=== PATIENT | male | born 1975 ===

== ENCOUNTER 2017-08-20 08:18 | Emergency (ER) | payer OTHER ==
[2017-08-20 08:36] VITALS: BP 153/101
--- NOTE | 2017-08-20 09:52 | UC ---
Skin Complaint HPI - HPI Summary HPI Summary: 42 yo male presents with burn to his right hand. He tells me that last night he was cooking in the oven with a metal waggoner, his phone rang and distracted him and he reached to grab the hot waggoner with his bare hand. Had immediate pain. Ran his hand under cool water for about 30-45minutes. Here today to get it "checked out ". Pain is well controlled. Denies fever, chills. - History of Current Complaint Chief Complaint: UCBurn Time Seen by Provider: 08/20/17 09:52 Stated Complaint: HAND BURN Hx Obtained From: Patient Onset/Duration: Sudden Onset Skin Exposure Onset/Duration: Hours Ago Timing: Constant Onset Severity: Severe Current Severity: Mild Pain Intensity: 2 Pain Scale Used: 0-10 Numeric - Allergy/Home Medications Allergies/Adverse Reactions: Allergies Allergy/AdvReac Type Severity Reaction Status Date / Time No Known Allergies Allergy Verified 08/20/17 08:35 Home Medications: Home Medications Amlodipine Besylate [Norvasc] 1 tab PO DAILY 08/20/17 [History Confirmed ] Etanercept [Enbrel] 1 dose IM WEEKLY 08/20/17 [History Confirmed 08/20/17] FLUoxetine CAP* [Prozac CAP*] 1 tab PO DAILY 08/20/17 [History Confirmed ] Review of Systems Constitutional: Negative Skin: Other - Burn palmar aspect right hand Eyes: Negative ENT: Negative Respiratory: Negative Cardiovascular: Negative Gastrointestinal: Negative Neurovascular: Negative Neurological: Negative Psychological: Negative All Other Systems Reviewed And Are Negative: Yes PMH/Surg Hx/FS Hx/Imm Hx Previously Healthy: Yes Cardiovascular History: Hypertension Psychological History: Anxiety - Surgical History Surgical History: None - Family History Known Family History: Positive: None - Social History Occupation: Unemployed Lives: With Family Alcohol Use: None Substance Use Type: None Smoking Status (MU): Never Smoked Tobacco - Immunization History Most Recent Tetanus Shot: UTD Physical Exam - Summary Physical Exam Summary: GENERAL: NAD. WDWN. No pain distress. SKIN: Right palmar aspect of hand: 2.5cm blister with mildly erythematous base on thenar region. 2.0cm blister along index, middle, and ring finger MCP pads. Two blisters on each middle and index fingers. No streaking, bleeding, or drainage. NECK: Supple. Nontender. No lymphadenopathy. CHEST: No accessory muscle use. Breathing comfortably and in no distress. CV: RRR. Without m/r/g. MSK: Right hand: FROM. NEURO: Alert. CN II-XII grossly intact. PSYCH: Age appropriate behavior. Triage Information Reviewed: Yes Vital Signs: Initial Vital Signs Temp 97.6 F 08/20/17 08:32 Pulse 90 08/20/17 08:32 Resp 22 08/20/17 08:32 BP 153/101 08/20/17 08:32 Pulse Ox 98 08/20/17 08:32 Course/Dx - Course Course Of Treatment: Second degree burn to right hand. Apply aloe and keep the blisters intact and do not pop them. Keep hand covered when working. f/u prn - Diagnoses Provider Diagnoses: Second degree burn right hand Discharge - Sign-Out/Discharge Documenting (check all that apply): Discharge/Admit/Transfer - Discharge Plan Condition: Stable Disposition: HOME Patient Education Materials: Second Degree Burn (ED) Referrals: Manoj Siddiqui NP [Primary Care Provider] - Additional Instructions: If you develop a fever, shortness of breath, chest pain, new or worsening symptoms - please call your PCP or go to the ED. Your blood pressure was high at todays visit. Please see your primary provider within 4 weeks for recheck and re-evaluation. 1) Apply aloe to your hand and cover any open sores - Billing Disposition and Condition Condition: STABLE Disposition: Home
== END 2017-08-20 10:07 | disposition home or self-care (01) ==
LOC: UCEAST 08:18
DX: T23.251A Burn of second degree of right palm, initial encounter (principal); T23.231A Burn of second degree of multiple right fingers (nail), not including thumb, initial encounter; X15.3XXA Contact with hot saucepan or skillet, initial encounter; Y93.G3 Activity, cooking and baking; Y92.000 Kitchen of unspecified non-institutional (private) residence as the place of occurrence of the external cause; I10 Essential (primary) hypertension; F41.9 Anxiety disorder, unspecified
CPT/HCPCS: 99211; G0463

== ENCOUNTER 2017-09-10 06:39 | Inpatient (IN) | payer OTHER ==
[~2017-09-10 06:39] MED LIST: Buffered Lidocaine 0.9% SYRIN* 5 ML/SYR SYRINGE INTRADERM ONE; CEFAZOLIN IVPB SCH; NS 0.9% IVPB SCH
[2017-09-10] MEDS ORDERED: Buffered Lidocaine 0.9% SYRIN* 5 ML/SYR SYRINGE ONE (07:16)
[2017-09-10] MEDS ORDERED: Heparin VIAL(*) 5000 UNITS/ML VIAL (FIVE THOUSAND) ONE (07:16)
[2017-09-10] MEDS ORDERED: ceFAZolin 2 GM PREMIX (*) 2 GM/50 ML BAG IVPB ONE ×2 (07:16→19:19)
[2017-09-10] MEDS ORDERED: ceFAZolin 1 GM in Dextrose (*) 1 GM/50 ML BAG IVPB ONE ×2 (07:16→19:19)
[2017-09-10] MEDS ORDERED: Bupivacaine 0.5% SDV PF* 30ML VIAL ONE (14:24)
[2017-09-10] MEDS ORDERED: Midazolam* 1 MG/ML 2 ML VIAL (2 MG) ONE (14:27)
[2017-09-10] MEDS ORDERED: fentaNYL* 50 MCG/ML 2 ML VIAL (100 MCG VIAL) ONE ×5 (14:27→20:47)
[2017-09-10] MEDS ORDERED: Dexamethasone IV* 4 MG/ML 1 ML (4 MG) ONE (17:25)
[2017-09-10] MEDS ORDERED: Lidocaine 2% PF * 5 ML VIAL ONE (17:25)
[2017-09-10] MEDS ORDERED: Propofol* 10 MG/ML 20 ML BTL IV PUSH ONE ×2 (17:25→19:01)
[2017-09-10] MEDS ORDERED: Glycopyrrolate IV* 0.2 MG/ML 1 ML VIAL ONE (19:42)
[2017-09-10] MEDS ORDERED: Neostigmine Methylsulfate* 1 MG/ML 10 ML VIAL (1 mg/ml) ONE (19:42)
[2017-09-10] MEDS ORDERED: Ondansetron INJ* 2 MG/ML VIAL IV PRN (20:07)
[2017-09-10] MEDS ORDERED: diPHENhydraMINE IV* 50 MG/ML 1 ml VIAL (BENADRYL) SLOW PUSH PRN (20:07)
[2017-09-10] MEDS ORDERED: HYDROmorphone INJ* 0.5 MG/0.5 ML SYRINGE IV PRN (20:07)
--- NOTE | 2017-09-10 20:18 | BRIEFOPN ---
Brief Operative Note - Surgery Procedures: PREOP DX: MORBID OBESITY POSTOP DX: SAME PROC: LAPAROSCOPIC SLEEVE GASTRECTOMY WITH INTRAOPERATIVE EGD SURG: MECENAS COSURGEON: SAMAN CANCINO: FROYLAN WOMACK EBL: 50ML IVF: LR SPEC: PORTION OF STOMACH DRAIN: NONE COMP: NONE COND: STABLE; EXTUBATED TO RR.
[2017-09-10] MEDS ORDERED: Naloxone* 0.4 MG/ML 1 ML VIAL IV PRN (20:20)
[2017-09-10] MEDS ORDERED: Metoclopramide IV* 5 MG/ML 2 ML VIAL IV PRN (20:20)
[2017-09-10] MEDS ORDERED: PROCHLORPERAZINE INJ 5 MG/ML 2 ML VIAL IV PRN (20:20)
[2017-09-10] MEDS: fentaNYL* 50 MCG/ML 2 ML VIAL (100 MCG VIAL) IV PRN ×4 (20:25→20:55)
[2017-09-10] MEDS ORDERED: HYDROmorphone INJ* 0.5 MG/0.5 ML SYRINGE ONE (21:04)
[2017-09-10] MEDS: HYDROmorphone INJ* 0.5 MG/0.5 ML SYRINGE IV PRN ×4 (21:10→23:57)
--- NOTE | 2017-09-10 21:52 | OP ---
CC: [facility] OPERATIVE REPORT: DATE OF OPERATION: 09/10/17 DATE OF : 79 SURGEON: Enrrique Ramos MD ANESTHESIA: General, intraoperatively. PRE-OP DIAGNOSIS: Inability to pass nasogastric/orogastric tube intraoperatively. POST-OP DIAGNOSES: 1. Inability to pass nasogastric/orogastric tube intraoperatively. 2. Normal-appearing esophagus with a rather angulated turn of the distal esophagus just prior to entering the stomach. 3. Mild irregularity of the squamocolumnar junction without evidence of stricture, stenosis, esophagitis. 4. No evidence of hiatal hernia. 5. Normal-appearing stomach. 6. Normal duodenum. OPERATIVE PROCEDURE: ESTIMATED BLOOD LOSS: None. SPECIMENS: None. COMPLICATIONS: None. BRIEF HISTORY: Mr. Christiano Ordaz is a 42-year-old gentleman is undergoing an elective gastric sleeve bariatric surgery and during the initial course of laparoscopy, it was noted that the stomach was markedly distended. Both the Anesthesia and Surgery had difficulty passing a nasogastric tube as well as a 34 - Liberian gastric lavage tube into the stomach to decompress this, so that the gastric sleeve surgery could be performed. Upper endoscopy was requested for gastric decompression as well as diagnosis of any physical abnormality that may be present to create difficulty passing the NG tube. I was not able to discuss the procedure with the patient preoperatively as this was an urgent intraoperative consultation and risks, benefits, alternatives were not able to be explained. DESCRIPTION OF PROCEDURE: The patient was intubated in the supine and was in the supine position. He was under general anesthetic. The upper endoscope was introduced into the posterior pharynx. The existing endotracheal tube was identified and the esophagus was entered under direct vision. Posterior pharynx and this area showed some edema most likely from the previous multiple attempts at nasogastric tube passage but there was no evidence of bleeding or injury. Once the esophagus was entered, it was evident that it was unremarkable throughout its entire length without evidence of web strictures, stenosis or angulation. The squamocolumnar junction was identified. This was somewhat irregular, but without evidence of esophagitis or narrowing or ulceration. Also noted in this area was a rather sharp angulation as the esophagus turned into the stomach, but I was able to enter the stomach without difficulty and this was insufflated. There was some fluid within the stomach which I did not completely aspirate; however, there was no evidence of abnormality in the fundus, body or antrum of the stomach. The pylorus was widely patent. The duodenal bulb and the first and second portions of duodenum were normal. I did withdraw the endoscope back into the stomach and on retroflexion, I noted no evidence of hiatal hernia. The stomach was then suctioned until collapsed and the endoscope was then withdrawn. The patient tolerated this portion of the procedure well. [id number]/[facility] #: [id number] MTDD
[2017-09-10] MEDS ORDERED: Ketorolac INJ* 30 MG/ML 1 ML VIAL ONE (21:53)
[2017-09-10] MEDS: Ketorolac INJ* 30 MG/ML 1 ML VIAL IV PRN (21:54)
[2017-09-10] MEDS: Famotidine IV* 10 MG/ML 2 ML (20 mg) IV SLOW PU SCH (22:55)
[2017-09-11] MEDS: HYDROmorphone INJ* 0.5 MG/0.5 ML SYRINGE IV PRN ×5 (01:53→14:08)
[2017-09-11] MEDS: Ketorolac INJ* 30 MG/ML 1 ML VIAL IV PRN ×2 (09:00→19:46)
[2017-09-11] MEDS: Famotidine IV* 10 MG/ML 2 ML (20 mg) IV SLOW PU SCH ×2 (09:00→19:50)
[2017-09-11] MEDS: amLODIPine TAB* 5 MG PO SCH (09:00)
--- NOTE | 2017-09-11 09:29 | PN ---
Progress Note - Progress Note Date of Service: 09/11/17 SOAP: Subjective: He reports abdominal pain controlled with IV narcotics. Some nausea, no vomiting or GERD. Events of surgery yesterday discussed. Objective: Vital Signs Temp 98.4 F 09/11/17 02:07 Pulse 95 09/11/17 04:26 Resp 16 09/11/17 08:59 BP 143/87 09/11/17 04:26 Pulse Ox 99 09/11/17 06:11 Gen: NAD, sitting up in bed. Abd: obese; dressings c/d/i; soft with tenderness at incisions. Intake & Output 09/10/17 09/11/17 09/11/17 18:59 06:59 18:59 Intake Total 3900 Output Total 1400 Balance 2500 Weight 389 lb Intake: IV Fluids 3900 ANCEF 3 GMS 100 LR 3800 Oral 0 Output: Urine 1400 Assessment: POD#1 s/p LSG; intraop EGD. Doing well. Plan: Adv diet. PO meds. Pulm toilet. Amb. Likely home tomorrow.
[2017-09-11] MEDS: HYDROcodone/ACET. 7.5/325 LIQ* 15 ML UDC PO PRN ×2 (10:36→17:51)
--- NOTE | 2017-09-11 11:31 | OP ---
CC: [facility]; Manoj Siddiqui NP, [facility]* OPERATIVE REPORT: DATE OF OPERATION: 09/10/17 - Inpatient, room SSU 351-01 DATE OF : 79 SURGEON: Zach Tellez MD CO-SURGEON/OPERATIONS MANAGER ASSISTANT: Enrrique Ramos MD ANESTHESIOLOGIST: Erin Lazaro MD ANESTHESIA: General. PRE-OP DIAGNOSIS: Morbid obesity. POST-OP DIAGNOSIS: Morbid obesity. OPERATIVE PROCEDURE: Laparoscopic sleeve gastrectomy with intraoperative endoscopy. ESTIMATED BLOOD LOSS: 50 mL. IV FLUIDS: 3 L crystalloid. SPECIMEN: Portion of the stomach. DRAINS: None. COMPLICATIONS: None. COUNTS: The instrument, needle, sponge counts were correct. DESCRIPTION OF PROCEDURE: The patient was brought to the operating room placed on the table supine. Sequential compression devices were placed on both extremities. General anesthesia was administered. He was positioned and padded appropriately. He was treated with appropriate intravenous antibiotics. He was prepped and draped in the usual sterile fashion and time-out was performed. Local anesthetic was infiltrated into the skin and soft tissue prior to making each incision. Entry to the abdomen was through left upper quadrant incision accommodating 5-mm optical trocar. After accessing the peritoneal cavity, carbon dioxide was insufflated to a pressure of 15 mmHg. Laparoscope was introduced and visualization revealed dilation of both transverse colon and of the stomach. Due to the patient's large size and the distention noted, this made visualization particularly difficult. At this time, multiple attempts were made to intubate the stomach by the anesthesiologist with nasogastric approach, orogastric approach with a variety of both 18-Monegasque [place] Sump tube as a well as 34-Monegasque gastric lavage tube. None of these maneuvers was successful despite multiple attempts by several anesthesiologists as well as co- surgeon. Ultimately the decision was made to perform an intraoperative endoscopy and this was performed by Dr. Ramos and is dictated as a separate procedure. At the time of the intraoperative endoscopy, the laparoscope was removed, the port was removed, and the wound was closed with stitch, and dressed. After the intraoperative endoscopy, the patient was re-prepped and re-draped and the time-out was repeated. The patient's abdomen was re-insufflated with carbon dioxide through the previous port site and then the patient's remaining trocars were placed with two 12-mm bladeless trocars placed in the supraumbilical midline and right upper quadrant. A 5-mm trocar was placed laterally in the left upper quadrant. Ultimately, the initial 5-mm trocar was replaced with a 12-mm trocar. A Jose liver retractor was placed percutaneously in the subxiphoid position, used to elevate the left lobe of the liver. The liver was relatively small. The stomach was noted to have normal anatomy. There was a large gastric fat pad, which was dissected free. There was some scarring anterior to the pylorus, which was lysed with LigaSure. The pylorus was identified and 6 cm proximal to this, the greater curvature was skeletonized with the LigaSure entering into the lesser sac and dividing posterior adhesions in the lesser sac as well as the posterior short gastric vessels up near the cardia of the stomach. After the stomach had been completely mobilized in this fashion, a sleeve gastrectomy was performed over a 40- Monegasque bougie using sequential firings of the EndoGIA staple with purple cartridges with reinforcement. After dividing the stomach, the specimen was retrieved through the right upper quadrant port site. Inspection of the abdominal cavity revealed staple lines to be intact and hemostasis was excellent. The right upper quadrant wound was closed with a single suture of 0 Vicryl to approximate the fascia in 1 layer. The ports were then removed under direct visualization and carbon dioxide was released. The wounds were closed with 4-0 Monocryl in subcuticular fashion and Steri-Strips and dressings were applied. The patient tolerated this well. Note that this procedure was much more difficult than a typical procedure of this kind due to the difficulties with intubation of the stomach due to the patient's body habitus and this required prolonged operating room time totalling approximately 5 hours. The patient's body habitus necessitated the use of extended length instrumentation including the use of an extended length 45-degree 10-mm laparoscope for portions of the procedure. [id number]/[facility] #: [id number] EPI
[2017-09-11] MEDS: D5W 1/2 NS KCl 20 Meq 1000 ML* 1,000 ML IV SCH (19:52)
[2017-09-12] MEDS: HYDROmorphone INJ* 0.5 MG/0.5 ML SYRINGE IV PRN (00:48)
[2017-09-12] MEDS: D5W 1/2 NS KCl 20 Meq 1000 ML* 1,000 ML IV SCH ×2 (03:47→11:42)
[2017-09-12] MEDS: Acetaminophen ADULT LIQ* 650 MG/20.3 ML UDC PO PRN ×2 (03:59→21:45)
[2017-09-12] MEDS: Ketorolac INJ* 30 MG/ML 1 ML VIAL IV PRN ×2 (03:59→12:49)
[2017-09-12] MEDS: HYDROcodone/ACET. 7.5/325 LIQ* 15 ML UDC PO PRN ×3 (07:51→16:16)
[2017-09-12] MEDS: FLUoxetine CAP* 20 MG PO SCH (08:47)
[2017-09-12] MEDS: BuPROPion XL* 300 MG TAB.XL PO SCH ×2 (08:47→10:17)
[2017-09-12] MEDS: amLODIPine TAB* 5 MG PO SCH (08:47)
[2017-09-12] MEDS: Famotidine IV* 10 MG/ML 2 ML (20 mg) IV SLOW PU SCH ×2 (08:48→21:26)
--- NOTE | 2017-09-12 11:44 | PN ---
Progress Note - Progress Note Date of Service: 09/12/17 Note: S: POD #2. (Seen by Dr. Tellez earlier this a.m.) Astrid mojica clears fairly well, though only up to 3/ hr. Feels "gas bubble" discomfort when he drinks. No nausea , vomiting, or regurgitation. Ambulating well. Passing flatus. Pain controlled. Current Medications Acetaminophen (Tylenol Adult Liq*) 650 mg PO Q6H PRN PRN Reason: Temp > 101 F Or Mild Pain Last Admin: 09/12/17 03:59 Dose: 650 mg Hydrocodone Bitart/Acetaminophen (Nortab 7.5/325 Liq*) 15 ml PO Q6H PRN PRN Reason: PAIN Last Admin: 09/12/17 07:51 Dose: 15 ml Amlodipine Besylate ([facility]asc Tab*) [facility] Last Admin: 09/12/17 08:47 Dose: 5 mg Bupropion HCl (Bupropion Xl*) 300 mg PO [facility] Last Admin: 09/12/17 10:17 Dose: Not Given Diphenhydramine HCl (Benadryl Iv*) 25 mg SLOW PUSH Q6H PRN PRN Reason: ITCHING Famotidine (Pepcid Iv*) 20 mg IV SLOW PU BID [facility] Last Admin: 09/12/17 08:48 Dose: 20 mg Fluoxetine HCl (Prozac Cap*) [facility] Last Admin: 09/12/17 08:47 Dose: 20 mg Hydromorphone HCl (Dilaudid Inj*) 1 mg IV Q1H PRN PRN Reason: PAIN Last Admin: 09/12/17 00:48 Dose: 1 mg Potassium Chloride/Dextrose (D5w 1/2 Ns Kcl 20 Meq 1000 Ml*) 1,000 mls @ 125 mls/hr IV PER RATE [facility] Last Admin: 09/12/17 03:47 Dose: 125 mls/hr Ketorolac Tromethamine (Toradol Inj*) 30 mg IV Q6H PRN PRN Reason: PAIN Stop: 09/12/17 20:10 Last Admin: 09/12/17 03:59 Dose: 30 mg Ondansetron HCl (Zofran Inj*) 4 mg IV Q6H PRN PRN Reason: NAUSEA/VOMITING Last Admin: 09/11/17 04:39 Dose: 4 mg O: Vital Signs - 8 hr 09/12/17 09/12/17 09/12/17 04:13 04:28 07:11 Temperature 98.0 F 97.3 F Pulse Rate 97 81 Respiratory 18 18 16 Rate Blood Pressure 137/82 141/77 (mmHg) O2 Sat by Pulse 97 97 Oximetry 09/12/17 09/12/17 07:51 08:00 Temperature Pulse Rate Respiratory 20 18 Rate Blood Pressure (mmHg) O2 Sat by Pulse Oximetry Intake and Output Last 24 Hours 09/10/17 09/11/17 09/12/17 09/13/17 06:59 06:59 06:59 06:59 Intake Total 3900 2800 Output Total 1400 2200 200 Balance 2500 600 -200 Weight 389 lb Intake: IV Fluids 3900 2260 ANCEF 3 GMS 100 D5W 1/2 NS 20 meq KCL 1030 LR 3800 1230 Oral 0 540 Output: Urine 1400 2200 200 Gen: NAD Heart: reg Lungs: clear Abd: lap sites ok w/ min dried blood on steristrips; +BS; soft; min incisional tenderness only A: s/p lap sleeve gastrectomy, improving P: likely d/c home later today; instructions reviewed
[2017-09-12] MEDS ORDERED: D5W 1/2 NS KCl 20 Meq 1000 ML* 1,000 ML IV SCH (20:00)
--- NOTE | 2017-09-13 03:12 | DS ---
AMENDED REPORT NOW INCLUDES COSIGNER DESIGNATION - ESIGNED BEFORE ADJUSTMENT CC: Manoj Siddiqui NP; Dr. Rip Shipman; [facility].* DISCHARGE SUMMARY: DATE OF ADMISSION: 09/10/17 DATE OF DISCHARGE: 09/12/17 ATTENDING PHYSICIAN: Dr. Zach Tellez.* (DICTATED BY KRIS ARMSTRONG) HOSPITAL COURSE: Please refer to admission history and physical and operative note for details. The patient was taken to the operating on 09/10/17 and at that time, underwent laparoscopic sleeve gastrectomy with Dr. Tellez. Postoperative course has been uneventful with gradual progression in terms of ambulation, pain control and oral intake. As of the morning of discharge, his intake was still a bit on the low side so decision for discharge was to be deferred until the early afternoon. His pain seemed to be well controlled. PHYSICAL EXAMINATION: On exam, the morning of discharge, temperature 97.3, blood pressure 141/77, pulse 81, respirations 16, room air saturation 97%. At the beginning of the physical exam (the patient was seen earlier this morning by Dr. Tellez). General: Well-nourished, morbidly obese male in no acute distress. He appears comfortable. Skin: Warm and dry. Heart: Regular rate and rhythm. Lungs: Clear to auscultation. No rales or wheezes. Abdomen: Laparoscopic incision sites with small amounts of dried blood, otherwise clean and dry. Bowel sounds are present and normoactive. Abdomen is soft with mild incisional tenderness only. The remainder of the abdomen is soft and nontender. IMPRESSION: Status post laparoscopic sleeve gastrectomy, doing well. PLAN: Anticipate discharge this afternoon. We discussed instructions regarding wound care, activity and diet. He also has written instructions. He will hold his amlodipine for the present time. He will resume Enbrel as directed by . He does have a prescription for hydrocodone with Tylenol elixir. He has a scheduled followup at the [facility] for metabolic and bariatric surgery next week. Addendum: patient stayed in hospital an addition day and was discharged home on 09/13/17. Because of his most recent BPs, he will continue his usual amlodipine upon discharge. KRIS ARMSTRONG [id number]/[facility] #: [id number] [facility] HOSPITALMoises
--- NOTE | 2017-09-13 08:24 | PN ---
Progress Note - Progress Note Date of Service: 09/13/17 Note: Surgery Progress: S: POD #3. Better this a.m. Yesterday he was unable to get past 90 ml/hr of oral intake 2/2 epigastric pain. He is now up to 120-150 ml/hr. He is only using Tylenol for pain. He is passing flatus. Patient seen with PA student Maura Bender. O: Vital Signs - 8 hr 09/13/17 09/13/17 00:35 03:25 Temperature 98.1 F Pulse Rate 84 Respiratory 16 Rate Blood Pressure 163/97 (mmHg) O2 Sat by Pulse 95 95 Oximetry Intake and Output Last 24 Hours 09/11/17 09/12/17 09/13/17 09/14/17 06:59 06:59 06:59 06:59 Intake Total 3900 2800 2643 Output Total 1400 2200 2825 Balance 2500 600 -182 Weight 389 lb Intake: IV Fluids 3900 2260 1963 ANCEF 3 GMS 100 D5W 1/2 NS 20 meq KCL 1030 1963 LR 3800 1230 Oral 0 540 680 Output: Urine 1400 2200 2825 Other: # Bowel Movements 0 Gen: appears comfortable Remainder of exam- see PA student note A: s/p lap sleeve gastrectomy, doing well P: home today; instructions reviewed; will have him cont his amlodipine upon discharge.
--- NOTE | 2017-09-13 08:39 | PN ---
Progress Note - Progress Note Date of Service: 09/13/17 SOAP: Subjective: Christiano Ordaz is post op day 3 from a laparoscopic sleeve gastrectomy. He reports an increase in fluid intake to 120ml/hr. He is passing flatus and ambulating well. He denies abdominal pain, nausea, and vomiting. His pain is now well controlled on Tylenol. Current Medications Acetaminophen (Tylenol Adult Liq*) 650 mg PO Q6H PRN PRN Reason: Temp > 101 F Or Mild Pain Last Admin: 09/12/17 21:45 Dose: 650 mg Hydrocodone Bitart/Acetaminophen (Nortab 7.5/325 Liq*) 15 ml PO Q6H PRN PRN Reason: PAIN Last Admin: 09/12/17 16:16 Dose: 15 ml Amlodipine Besylate (Norvasc Tab*) 5 mg PO QAM [facility] Last Admin: 09/12/17 08:47 Dose: 5 mg Bupropion HCl (Bupropion Xl*) 300 mg PO QAM [facility] Last Admin: 09/12/17 10:17 Dose: Not Given Diphenhydramine HCl (Benadryl Iv*) 25 mg SLOW PUSH Q6H PRN PRN Reason: ITCHING Famotidine (Pepcid Iv*) 20 mg IV SLOW PU BID [facility] Last Admin: 09/12/17 21:26 Dose: 20 mg Fluoxetine HCl (Prozac Cap*) 20 mg PO QAM [facility] Last Admin: 09/12/17 08:47 Dose: 20 mg Hydromorphone HCl (Dilaudid Inj*) 1 mg IV Q1H PRN PRN Reason: PAIN Last Admin: 09/12/17 00:48 Dose: 1 mg Potassium Chloride/Dextrose (D5w 1/2 Ns Kcl 20 Meq 1000 Ml*) 1,000 mls @ 75 mls /hr IV .PER RATE [facility] Last Admin: 09/12/17 21:48 Dose: 75 mls/hr Ondansetron HCl (Zofran Inj*) 4 mg IV Q6H PRN PRN Reason: NAUSEA/VOMITING Last Admin: 09/11/17 04:39 Dose: 4 mg Objective: Vital Signs - 8 hr 09/13/17 09/13/17 00:35 03:25 Temperature 98.1 F Pulse Rate 84 Respiratory 16 Rate Blood Pressure 163/97 (mmHg) O2 Sat by Pulse 95 95 Oximetry Intake & Output 09/12/17 09/13/17 09/13/17 22:59 06:59 14:59 Intake Total 1393 60 Output Total 1125 900 Balance 268 -840 Intake: IV Fluids 983 D5W 1/2 NS 20 meq KCL 983 Oral 410 60 Output: Urine 1125 900 Other: # Bowel Movements 0 General: The patient appears well and is no acute distress. Heart: regular rate and rhythm lungs: clear to auscultation bilaterally abdominal: lap sites/steri strips have some dried blood but there is no surrounding erythema, lap sites are non-tender to light palpation, bowel sounds present Assessment: Status post laparoscopic sleeve gastrectomy Christiano appears to be doing well and improving. He is increasing his fluid intake and he is doing well with Tylenol for pain control. Plan: Discharge today. Driving was discussed with the patient and Dawit Fuentes PA-C recommended that refrain from driving himself home so Christiano said his girlfriend will be able to drive him home today.
[2017-09-13] MEDS: BuPROPion XL* 300 MG TAB.XL PO SCH (08:55)
[2017-09-13] MEDS: FLUoxetine CAP* 20 MG PO SCH (08:55)
[2017-09-13] MEDS: amLODIPine TAB* 5 MG PO SCH (08:55)
[2017-09-13] MEDS: Famotidine IV* 10 MG/ML 2 ML (20 mg) IV SLOW PU SCH (08:56)
[2017-09-13 09:06] VITALS: BP 152/93
[2017-09-13] MEDS: Acetaminophen ADULT LIQ* 650 MG/20.3 ML UDC PO PRN (09:14)
== END 2017-09-13 10:20 | disposition home or self-care (01) | DRG 403 ==
LOC: AA 06:39 → SSU 22:11
PROVIDERS: ADMIT Surgery; ATTEND Surgery
PROC: 0DJ08ZZ Inspection of Upper Intestinal Tract, Via Natural or Artificial Opening Endoscopic (ICD-10-PCS; 2017-09-10)
PROC: 0DB64Z3 Excision of Stomach, Percutaneous Endoscopic Approach, Vertical (ICD-10-PCS; principal; 2017-09-10 08:30)
DX: E66.01 Morbid (severe) obesity due to excess calories (principal); I10 Essential (primary) hypertension; F98.8 Other specified behavioral and emotional disorders with onset usually occurring in childhood and adolescence; F41.9 Anxiety disorder, unspecified; F32.9 Major depressive disorder, single episode, unspecified; M45.9 Ankylosing spondylitis of unspecified sites in spine; M19.90 Unspecified osteoarthritis, unspecified site; Z83.49 Family history of other endocrine, nutritional and metabolic diseases; Z82.0 Family history of epilepsy and other diseases of the nervous system; Z82.61 Family history of arthritis; Z83.3 Family history of diabetes mellitus; Z87.891 Personal history of nicotine dependence; Z68.43 Body mass index [BMI] 50.0-59.9, adult; R11.0 Nausea
CPT/HCPCS: 43775; 88307; A9270-GY; J0690; J1100; J1170; J1644; J1885; J2250; J2405; J2704; J2710; J3010